=== PATIENT | female | born 1950 | race African-American/Black ===

== ENCOUNTER 2017-04-06 09:02 | Outpatient (CLI) | payer MEDICARE, BC ==
--- NOTE | 2017-04-06 09:31 | RAD ---
CHEST 2 VIEWS: Date: 04/06/17 HISTORY: Dyspnea. COMPARISON: 01/22/17. FINDINGS: Heart size is enlarged. Lungs are clear of any infiltrative process. There is interstitial change in the bases, similar to the prior exam, probably related to scar. IMPRESSION: Cardiomegaly with chronic-appearing lung change. POS: [facility]
== END 2017-04-06 09:03 | disposition home or self-care (01) ==
LOC: RAD 09:02
PROVIDERS: ATTEND Internal Medicine Critical Care Medicine
DX: R06.00 Dyspnea, unspecified (principal); I51.7 Cardiomegaly
CPT/HCPCS: 71020

== ENCOUNTER 2017-04-28 06:56 | Outpatient (CLI) | payer MEDICARE, BC ==
--- NOTE | 2017-04-28 11:42 | RAD ---
PA AND LATERA CHEST: HISTORY: Dyspnea. COMPARISON: 04/06/17 study. FINDINGS: Heart size is enlarged. Some interstitial changes in the bases which appear to be chronic in nature. They are stable as compared to the prior study. IMPRESSION: Cardiomegaly with chronic-appearing interstitial change in the lung bases. POS: [facility]
== END 2017-04-28 06:57 | disposition home or self-care (01) ==
LOC: RAD 06:56
PROVIDERS: ATTEND Internal Medicine Critical Care Medicine
DX: R06.00 Dyspnea, unspecified (principal); I51.7 Cardiomegaly; J84.89 Other specified interstitial pulmonary diseases
CPT/HCPCS: 71020

== ENCOUNTER 2017-07-19 12:52 | Inpatient (IN) | payer MEDICARE, BC ==
--- NOTE | 2017-07-19 14:46 | RAD ---
PORTABLE AP CHEST X-RAY: 07/19/2017 HISTORY: Pneumonia. COMPARISON: 04/28/2017 FINDINGS: There are interstitial and patchy densities seen at the left lung base, worrisome for developing pneu monia. Increased linear densities are seen in the right infrahilar region, which may represent super imposition of structures, including vasculature, with a similar appearance to the prior exam. The ca rdiac silhouette and pulmonary vasculature are within normal limits. There is no other interval del cid ge. IMPRESSION: 1. Mild interstitial and patchy density at the left lung base, which may be related to developing pn eumonia. Followup to resolution is recommended. 2. Increased density, right infrahilar region, probably related to superimposition of structures, in cluding vasculature. POS: OFF
[2017-07-19 14:53] LABS: Anion Gap 13 mmol/L (10-20); BUN (Urea Nitrogen) 17 mg/dL (9.8-20.1); Calc. Creatinine Clearance 0 mL/min (70-130); Calcium 9.8 mg/dL (7.8-10.44); Carbon Dioxide 23 mmol/L (23-31); Chloride 106 mmol/L (98-107); Estimated GFR-MDRD 68; Glucose 75 mg/dL (80-115); Potassium 4.7 mmol/L (3.5-5.1); Sodium 137 mmol/L (136-145)
[2017-07-19 14:54] LABS: Anisocytosis SLIGHT = 6-15 cells (100X) (0-5/hpf); Digoxin 0.58 ng/mL (0.8-2.0); Eosinophils 1 % (0-10); Hemoglobin 12.2 g/dL (12.0-16.0); Hypochromia SLIGHT = 6-15 cells (100X) (0-5/hpf); Lymphocytes 5 % (21-51); MDiff Complete? YES; Mean Corpuscular HGB CONC 31.1 g/dL (32.0-36.0); Mean Corpuscular Volume 93.2 fl (81.0-99.0); Mean Platelet Volume 9.7 fL (7.4-10.4); Monocytes 6 % (0-10); Neutrophil 88 % (42-75); PLT Morphology Comment Appears Adequate; Platelet Count 296 thou/uL (130-400); RBC Distribution Width 15.6 % (11.5-14.5); Red Blood Cell (RBC) Count 4.22 mill/uL (4.20-5.40); White Blood Cell (WBC) Count 8.9 thou/uL (4.8-10.8)
[2017-07-19] MEDS: Sodium Chloride 0.45% 1,000 ML IV SCH (18:31)
[2017-07-19 19:07] VITALS: BMI 38.1
[2017-07-19] MEDS: Digoxin 0.25 MG TAB PO SCH (20:50)
[2017-07-19] MEDS: Enoxaparin Sodium 40 MG/0.4 ML SYRINGE SC SCH (20:51)
[2017-07-19 23:07] LABS: Bilirubin Negative (Negative); Blood, Urine Negative (Negative); Clarity CLOUDY (Clear); Glucose, Urine (Dipstick) Negative (Negative); Leukocyte Negative (Negative); Nitrite Negative (Negative); Protein, Urine (Dipstick) Negative (Neg-Trace); Specific Gravity, Urine 1.018 (1.002-1.036); Urobilinogen 0.2 mg/dL (0.2-1.0)
[2017-07-19 23:09] LABS: Bacteria/HPF Rare-Few HPF (None Seen); Hyaline Casts/LPF 0-3 HYALINE CAST LPF (0-3 Hyaline); WBC/HPF 0-3 HPF (0-3)
[2017-07-20] MEDS ORDERED: Digoxin 0.25 MG TAB PO SCH (09:00)
[2017-07-20] MEDS ORDERED: Enoxaparin Sodium 40 MG/0.4 ML SYRINGE SC SCH (09:00)
[2017-07-20] MEDS ORDERED: FLU VACC TS2017-18 (>65YR) 0.5 ML SYRINGE IM ONE (09:00)
[2017-07-20] MEDS: Sodium Chloride 0.45% 1,000 ML IV SCH (12:32)
--- NOTE | 2017-07-20 19:45 | PRG ---
DATE OF SERVICE: 07/20/2017 SUBJECTIVE: Broderick Salter says she feels much better. OBJECTIVE: VITAL SIGNS: She is afebrile, heart rate is 95, respiratory rate is 24, oximetry is 91 on 5 liters. LUNGS: Still remarkable for crackles at her left base. HEART: Regular rhythm. ABDOMEN: Soft. LABORATORY DATA: White count yesterday was 8.9, hemoglobin 12.2, platelets 296. Electrolytes normal . IMPRESSION: 1. Asthmatic bronchitis. 2. Pneumonia. 3. Bronchiectasis. 4. ? scleroderma. The activity of her scleroderma is unclear. 5. Acute on chronic respiratory failure with chronic hypoxemia, on oxygen at home. 6. 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 PLAN: Continue current medications. I have ordered an echocardiogram. We will see what this shows. She reminded me that she is past due for her meningioma MRI, but since we do not have an open MRI, fantasma mao will not get in the MRI we have here. This will have to be done as an outpatient.
[2017-07-20] MEDS: Digoxin 0.25 MG TAB PO SCH (20:14)
[2017-07-20] MEDS: Enoxaparin Sodium 40 MG/0.4 ML SYRINGE SC SCH (20:15)
--- NOTE | 2017-07-21 04:55 | HP ---
07/19/2017 HISTORY OF PRESENT ILLNESS: Ms. Salter is a very pleasant, [facility] some time. 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 She was hospitalized in 2017 with reactive airways, bronchitis, rapid atrial fibrillation, pulmonary edema, alveolar hemorrhage, all of which was not felt to be classically related to underlying scleroderma. Certainly possible that the alveolar hemorrhage was, but she also had rapid atrial fibrillation and hypertension clinically at the time of the onset of alveolar hemorrhage. She developed critical illness, myopathy which took some while to recover from, but she did completely recover from that. She was hospitalized last fall with shortness of breath. It is felt to be ultimately related to asthmatic bronchitis. She also has bronchiectasis and reactive airways. She subsequently has been doing reasonably well on low-dose prednisone. She has seen new stain dipper across town. No medication changes have been made. She is on 10 mg a day of prednisone, tell me that she had shingles recently and then developed colds and respiratory symptoms several days prior to admission, dyspnea on exertion has increased. She was seen in my office and I recommended increasing her prednisone, we were considering placing her on more antimicrobial therapy. As she was leaving, she told me she felt like she was going to pass out. She subsequently has been admitted for possible pneumonia with reactive airways bronchiectasis. PAST MEDICAL HISTORY: 1. Remarkable for history of lupus, but she has had negative serology when I have drawn the serology. 2. History of scleroderma. 3. History of bronchiectasis. 4. History of reactive airways. 5. History of alveolar hemorrhage as mentioned above. 6. Diastolic dysfunction. 7. Positive SCL-70 IgG antibody, last admission with a positive SIENNA, but no other lupus serology. She had a positive smooth muscle antibody as well and IgM and a Cardiolite antibody, although she never had a hypercoagulable state. She has been worked up for thromboembolic disease now with her alveolar hemorrhage. 8. History of PFTs in the past that were normal. 9. History of bronchoscopy when she was intubated with respiratory failure and alveolar hemorrhage, showing 70% hemosiderin laden macrophages. 10. Anemia of chronic disease. 11. Multiple life stresses and chronically ill with multiple myeloma who has lost both of his legs, not supportive at all. Prior to admission, she was on digoxin 0.25 a day, aspirin 81 mg a day, Cardizem 240 a day, Lasix 40 a day, nebulizer treatments four times a day, lisinopril 5 mg a day, and prednisone 10 mg a day. SOCIAL HISTORY: She is a nonsmoker, nondrinker. She does not use drugs. ALLERGIES: TESSALON PERLES, CODEINE, IODINE and PENICILLIN. FAMILY HISTORY: As mentioned negative for lung disease at an early age. REVIEW OF SYSTEMS: Otherwise negative. Her only complaints are sinus congestion, cough, and dyspnea on exertion. PHYSICAL EXAMINATION: VITAL SIGNS: She is afebrile, heart rate 61, respiratory rate is 18, blood pressure 121/75. Oximetry is 100% on 6-liter cannula. HEENT: Pupils are equal. Sclerae are anicteric. Extraocular movements are full. NECK: Supple. No lymphadenopathy. LUNGS: She had crackles at her left base. HEART: Regular rhythm. S1 and S2 are normal. I do not hear a gallop. ABDOMEN: Soft and nontender. EXTREMITIES: Without clubbing, cyanosis, or edema. IMAGING: Chest radiograph shows no alveolar infiltrates. IMPRESSION: 1. Asthmatic bronchitis with possible pneumonia with underlying bronchiectasis. 2. Acute on chronic respiratory failure, chronic hypoxemia as an outpatient. 3. History of atrial fibrillation on Cardizem and digoxin. PLAN: Antibiotics, steroids, nebulizer treatments, DVT prophylaxis, serial exams, lab work. I will repeat an echo while she is here. Hopefully, we can maybe get estimated PA pressures. This is a 50 min consult, greater than 50% of this time was spent on the unit coordinating care. JASPER
[2017-07-21] MEDS: Sodium Chloride 0.45% 1,000 ML IV SCH (05:20)
--- NOTE | 2017-07-21 18:00 | PRG ---
DATE OF SERVICE: 07/21/2017 SUBJECTIVE: Broderick Salter says she is feeling better. She is still complaining of dyspnea on exert ion with desaturation. She says she gets a burning in her chest when gets nauseated, when she exerts . OBJECTIVE: VITAL SIGNS: Heart rate in the 90s, respiratory rate is in the 20s, oximetry is 88% to 100%. LUNGS: Remarkable for crackles at her lung bases that are faint. CARDIOVASCULAR: Regular rhythm. ABDOMEN: Soft. LABORATORY DATA: No new lab. Echocardiogram is pending. We will consult Cardiology since they have seen her in the past. It does not sound like angina, but it certainly could be. I will repeat noncontrast CT of the chest. Awaiting echocardiogram results.
[2017-07-21] MEDS: ALPRAZolam 0.25 MG TAB PO PRN (18:18)
--- NOTE | 2017-07-21 19:00 | CT ---
CT CHEST WITHOUT CONTRAST: 07/21/17 Multiple axial tomograms obtained through the chest without IV enhancement. HISTORY: Scleroderma. History of pulmonary hemorrhage. Comparison made to chest CT of 02/11/17. FINDINGS: There are chronic lung changes again seen. There are small cystic changes in the lung bases which wou ld be consistent with a history of scleroderma. There is some hazy ground glass opacity in the lung b ases which appears stable and there is mild bronchiectasis. These findings all appear stable from the prior study. There is a focal area of ground glass opacity in the left upper lung which is slightly more prominent today of uncertain significance. This could represent changes from scleroderma, althou gh a focal area of subtle infiltrate is not excluded. Mediastinum unremarkable. Images through upper abdomen unremarkable. No other interval change noted. IMPRESSION: 1. Chronic lung parenchymal changes which include numerous cystic changes in the lung bases with bronchiectasis and ground glass opacity with parenchymal stranding and interstitial thickening. Thes e are stable findings and consistent with scleroderma. 2. There is a subtle area of ground glass opacity in the left upper lung measuring in the 2 to 2 .5 cm range. This may represent changes related to scleroderma, although a more focal process cannot be completely excluded. It was not present on the prior study. POS: [facility]
[2017-07-21] MEDS: Digoxin 0.25 MG TAB PO SCH (21:21)
[2017-07-21] MEDS: Enoxaparin Sodium 40 MG/0.4 ML SYRINGE SC SCH (21:21)
[2017-07-22] MEDS: Sodium Chloride 0.45% 1,000 ML IV SCH ×2 (01:33→05:14)
--- NOTE | 2017-07-22 19:05 | PRG ---
DATE OF SERVICE: 07/22/2017 SUBJECTIVE: Broderick Salter has no complaints today at rest. She said she got out of bed and desatur ating in the 40s. She said she felt like she was passing out. Echocardiogram has been done. She had moderate to severe tricuspid insufficiency. She had evidence of pulmonary hypertension on echocardiogram, moderately elevated PA pressures. I di d not see in the report an estimated PA pressure. Cardiology has been consulted. OBJECTIVE: LUNGS: Clear. HEART: Regular rhythm. ABDOMEN: Soft. She says she is feeling better. I doubt she has thromboembolic disease, ventilation perfusion study will be ordered in the morning. She will probably need to be referred to a center that deals with pulmonary hypertension for further evaluation. I do not feel comfortable empirically prescribing many of the multiple medications that are available now for a pulmonary hypertension. We will continue the steroids, but plan on switching her to p.o. steroids today. I suspect some of h er shortness of breath is bronchiectasis and reactive airways. CT scan showed nothing to suggest napoleon t she has had recurrence of her alveolar hemorrhage. I met with her twice today and answered all of her questions.
[2017-07-22] MEDS ORDERED: Milk Of Magnesia 30 ML UDCUP PO PRN (19:56)
[2017-07-22] MEDS: Digoxin 0.25 MG TAB PO SCH (20:21)
[2017-07-22] MEDS: Enoxaparin Sodium 40 MG/0.4 ML SYRINGE SC SCH (20:21)
[2017-07-22] MEDS ORDERED: traMADol HCl 50 MG TAB PO PRN (21:58)
--- NOTE | 2017-07-23 02:20 | CON ---
DATE OF CONSULTATION: 07/22/2017 INDICATION FOR CONSULTATION: A 67-year-old female with tachycardia, history of scleroderma and lupus. HISTORY OF PRESENT ILLNESS: This very unfortunate 66-year-old female who has been seen by me in the past. She has a history of lupus, scleroderma. She has had a history of intermittent atrial fibrillation with rapid ventricular response and severe decrease in her O2 saturations at times which is minimal movement. She appears to have had another flare up of her COPD or her lung disease with her scleroderma and SLE. She has had a history of alveolar hemorrhage in the past. She required intubation and was very ill last admission. She came in again this time after seeing her mine inspector federal in the office and was admitted due to shortness of breath and we were asked to see her. She did have an echocardiogram yesterday which shows a normal ejection fraction. Ejection fraction still 60-65% with diastolic dysfunction. She does have a dilated right atrium and right ventricle and pulmonary hypertension, most likely compatible with her scleroderma, which has affected her lungs at this time. This morning, she had O2 saturations less than 50% which is minimal activity and now she is back in the 80s and 90s at times and she is not moving, but otherwise has been relatively stable. She denies any chest pain. She has no history of coronary artery disease, of any significance that I am aware of. At this time, she is more comfortable and says she feels better than when she was admitted. PAST MEDICAL HISTORY: Significant for systemic lupus erythematosus as well as scleroderma, alveolar hemorrhage. She has had a history of anemia of chronic disease. She has hypertension. She has a history of tachycardia and intermittent atrial fibrillation in the past. She had been on amiodarone which did not control her rate and she was eventually placed on digoxin. Past medical history is significant also for diabetes. She has had a meningioma. She has had a history of bronchiectasis with chronic disease. She has had an appendectomy and hysterectomy. FAMILY HISTORY: Positive for hypertension. She has 1 niece who has also had a lung transplant. Her father had a myocardial infarction in 1994. SOCIAL HISTORY: She is and lives with her . I believe he is also undergoing chemotherapy at this time. She has no history of alcohol or tobacco abuse. REVIEW OF SYSTEMS: A 12-point review of systems is unremarkable except for shortness of breath. She denied any chest pain or lower extremity edema. She does feel occasional palpitations. PRESENT MEDICATIONS: Include Xanax, aspirin 81 mg a day, digoxin 0.25 mg a day , diltiazem 240 mg q.p.m., Lovenox 40 mg subcu for DVT prophylaxis. She is on ipratropium/albuterol nebulizer treatment. She is on Levaquin 750 mg 2 every day, methylprednisolone 20 mg IV q.6 hours. ALLERGIES: She is allergic to BENZONATATE, CHOCOLATE FLAVORS, CODEINE, IODINE, PENICILLINS. PHYSICAL EXAMINATION: GENERAL: Reveals an elderly female in no acute distress at this time. She does become short of breath, when she exerts herself or becomes during the examination if she is talking too much, O2 saturations will drop down into the 80s. VITAL SIGNS: Her heart rate is in the 80s-90s and is somewhat irregular at times. Respiratory rate is anywhere between 16-24, O2 saturations anywhere between 78-90. Blood pressure is 126/69. HEENT: Shows the head to be normocephalic, atraumatic. Carotid pulses are present. No bruits were noted. LUNGS: Her chest has decreased breath sounds, but is clear throughout without any rales, rhonchi or wheezing. CARDIOVASCULAR: Reveals an irregular rhythm at times, sometimes regular. She may be having intermittent atrial fibrillation or this be just sinus tachycardia with occasional or frequent PACs. Otherwise, there were no significant heaves or thrills. She does have a systolic murmur at the lower sternal border. ABDOMEN: Shows abdomen to be obese with positive bowel sounds. No organomegaly , masses are noted. EXTREMITIES: Showed no clubbing, cyanosis or edema. Pedal pulses are present. NEUROLOGIC: The patient is intact. SKIN: Warm and dry. LABORATORY DATA: WBC of 8.9, hemoglobin is 12.2, glucose is 75, potassium is 4.7. Her creatinine is 0.98. Digoxin level was low at 0.58. IMPRESSION: 1. Elderly female with again respiratory exacerbation due to her most likely lupus as well as the scleroderma. She has what appears to be more right-sided failure with dilatation of the right ventricle and IVC dilatation as well as increased pulmonary pressures compatible with pulmonary hypertension. The left ventricle appears to be normal. 2. Diastolic dysfunction. 3. History of hypertension. This is under good control at this time. 4. History of lupus. She is on steroids chronically and she is followed by Dr. Rg. 5. History of scleroderma and this is most likely was affecting her lungs more than anything else, but cardiac status otherwise appears to be stable. 6. Tachycardia at times with intermittent atrial fibrillation. At this time, I will obtain an EKG to determine whether or not she is having intermittent atrial fibrillation or whether or not this is sinus with PACs. From a cardiac standpoint, I would just continue to monitor the heart rate and hopefully we may need to actually increase the dose of the digoxin slightly, but at this time , she appears to be relatively stable. The heart rate has been under reasonable control and has been in the 80s-90s. MTDD
[2017-07-23] MEDS: predniSONE 20 MG TAB PO SCH (07:31)
[2017-07-23] MEDS: Polyethylene Glycol 3350 17 GM Packet PO SCH (07:42)
[2017-07-23] MEDS: ALPRAZolam 0.25 MG TAB PO PRN (12:08)
--- NOTE | 2017-07-23 12:39 | PDOC.CTH ---
<Jada Elizalde - Last Filed: 07/23/17 12:37> Cardiology Progress Note - Subjective The pt seen and examined. No overnight events. No cardiac complaints. When she moves or walk with very short distance, she becomes very short-winded and O2 sat was down to 40s today. - Objective Vital Signs Temp Pulse Resp BP BP Pulse Ox 07/23/17 11:43 70 16 90 L 07/23/17 08:06 97.1 F L 90 16 144/86 H 07/23/17 08:00 97.1 F L 90 16 07/23/17 06:14 99 07/23/17 06:12 76 18 99 07/23/17 04:00 97.8 F 82 22 H 113/69 95 Weight 215 lb 3.2 oz - Physical Examination General/Neuro: alert & oriented x3 Neck: no JVD present Lungs: other: (diminished at bases) Heart: RRR Abdomen: soft Extremities: other: (No edema) - Labs Result Diagrams: 07/19/17 14:06 07/19/17 14:06 - Assessment/Plan 1. Resp. exacerbation secondary to lupus and scleroderma - managed by PCP 2. Diastolic dysfunction - stable; cont. monitor 3. Tachycardia and paroxysmal Afib - stable; cont. monitor 4. HTN - Stable with current medication 5. DM type 2 - stable with current medication MAR reviewed * Echo on 07/19/17 showed EF 60-65%, diastolic dysfunction, mod-severe TR, and mod Pulmonary artery pressure Review of Systems - Review of Systems Constitutional: reports: no symptoms reported EENTM: reports: no symptoms reported Respiratory: reports: see HPI Cardiac (ROS): reports: see HPI ABD/GI: reports: no symptoms reported : reports: no symptoms reported Musculoskeletal: reports: no symptoms reported <Kyle Maldonado - Last Filed: 07/23/17 14:57> Cardiology Progress Note - Objective Vital Signs Temp Pulse Resp BP BP Pulse Ox 07/23/17 14:28 92 16 96 07/23/17 11:43 70 16 90 L 07/23/17 08:06 97.1 F L 90 16 144/86 H 07/23/17 08:00 97.1 F L 90 16 07/23/17 06:14 99 07/23/17 06:12 76 18 99 07/23/17 04:00 97.8 F 82 22 H 113/69 95 Weight 215 lb 3.2 oz - Labs Result Diagrams: 07/19/17 14:06 07/19/17 14:06 - Assessment/Plan Pt. seen and eval. by me . I agree with the A/P by the CONTROLLER OPERATIONS AND HR MANAGER. The cardiac status remains relatively stable. RRR with ectopy.
--- NOTE | 2017-07-23 13:56 | PRG ---
DATE OF SERVICE: 07/23/2017 SUBJECTIVE: Broderick Salter is stable overnight. She is still complaining of anxiety, so I will give her alprazolam around the clock. Going to send her for ventilation perfusion study, the nurses are trying to get a new IV in her for h er injection. It turns out Ms. Salter has a longstanding history of obstructive sleep apnea. She says she just ke eps her CPAP in her closet and does not like wearing it. I will empirically place her on CPAP/BiPAP while she is in the hospital and see if we can get her to tolerate this. It is certainly possible that her scleroderma is contributing to pulmonary hypertension, but diastoli c dysfunction and untreated sleep apnea could also be factors. I doubt she has thromboembolic disease, but we will rule this out. We will continue with our current care. I will decrease her steroid dosing. She also has reactive airways and bronchiectasis and has had constantine e sputum production that appears to be improving with steroids and antibiotics. She did have some tr jayde hemoptysis yesterday, but this has not recurred.
--- NOTE | 2017-07-23 14:19 | RAD ---
TWO VIEW CHEST: HISTORY: Shortness of breath. Exam is also performed to correlate with VQ scan. COMPARISON: 03/04/15. FINDINGS: Heart is mildly enlarged but stable. The lungs show no evidence of focal infiltrate or significant e ffusion. Vascular and interstitial markings are prominent but are also stable in appearance. IMPRESSION: No acute finding or interval change noted. POS: [facility]
--- NOTE | 2017-07-23 14:23 | NM ---
VENTILATION PERFUSION LUNG SCAN: HISTORY: Pulmonary hypertension. COMPARISON: Correlation is made to PA and lateral chest film. Chest shows mild vascular and interstitial promine nce. The pulmonary outflow tracts do not appear significantly prominent on the chest x-ray. FINDINGS: Ventilation scan performed with inhalation of 10 mCi Xenon gas. Heterogeneous inhalation consistent with COPD. Mild heterogeneous air trapping. Perfusion scan performed with administration of 6.6 mCi of Technetium labeled MAA IV. The lungs were imaged in 8 projections. There is normal perfusion bilaterally. No perfusion defect identified. IMPRESSION: Heterogeneous inhalation images suggesting chronic obstructive pulmonary disease. Normal perfusion s can. No evidence of pulmonary embolus. POS: [facility]
[2017-07-23] MEDS: Digoxin 0.25 MG TAB PO SCH (21:05)
[2017-07-23] MEDS: Enoxaparin Sodium 40 MG/0.4 ML SYRINGE SC SCH (21:06)
[2017-07-24] MEDS: predniSONE 20 MG TAB PO SCH (08:17)
[2017-07-24] MEDS: Polyethylene Glycol 3350 17 GM Packet PO SCH (08:20)
--- NOTE | 2017-07-24 11:11 | PDOC.CTH ---
Cardiology Progress Note - Subjective She is having several episodes of palpitations. She states sometimes it has maintained there for a few minutes. She feels SOB when it happens. - Objective Vital Signs Temp Pulse Resp BP Pulse Ox 07/24/17 10:28 77 16 95 07/24/17 08:19 84 16 95 07/24/17 08:00 97.5 F L 84 16 07/24/17 07:09 97.5 F L 101 H 16 125/69 98 Weight 215 lb 3.2 oz - Physical Examination General/Neuro: alert & oriented x3, NAD Neck: no JVD present Lungs: other: (Crackles bilat. ) Heart: other: (RRR with several early beats) Abdomen: NT/ND Extremities: other: (no edema) - Labs Result Diagrams: 07/19/17 14:06 07/19/17 14:06 - Assessment/Plan 1. Resp. exacerbation secondary to lupus and scleroderma 2. Diastolic dysfunction, improved. 3. Tachycardia and paroxysmal Afib - Ectopy on ECG,will repeat. 4. HTN 5. DM type 2 DARVIN: - Continue current meds.
--- NOTE | 2017-07-24 14:33 | PRG ---
DATE OF SERVICE: 07/24/2017 SUBJECTIVE: This morning, she is better. She is less short of breath. She still says she desats wh en she is walking. She has got pulmonary hypertension, multifactorial in origin. Her chest x-ray shows slightly increas ed markings as of yesterday. OBJECTIVE: VITAL SIGNS: Sats 96, respirations 16, temperature 97, blood pressure is 120/59. CHEST: Reveals no crackles or wheezing. CARDIAC: Normal S1, S2. ABDOMEN: Soft, no masses. IMPRESSION: Respiratory failure, sleep apnea, bronchitis, obesity, bronchiectasis, scleroderma. PLAN: Continue present treatment, PT, and supportive care. We will follow.
[2017-07-24] MEDS: Enoxaparin Sodium 40 MG/0.4 ML SYRINGE SC SCH (20:16)
[2017-07-24] MEDS: Digoxin 0.25 MG TAB PO SCH (20:16)
[2017-07-25] MEDS: Polyethylene Glycol 3350 17 GM Packet PO SCH (08:07)
[2017-07-25] MEDS: predniSONE 20 MG TAB PO SCH (08:07)
--- NOTE | 2017-07-25 09:25 | EKG ---
Test Reason : Blood Pressure : / mmHG Vent. Rate : 091 BPM Atrial Rate : 091 BPM P-R Int : 136 ms QRS Dur : 082 ms QT Int : 326 ms P-R-T Axes : 050 003 087 degrees QTc Int : 400 ms Sinus rhythm with Premature atrial complexes Possible Left atrial enlargement Nonspecific ST and T wave abnormality Abnormal ECG When compared with ECG of 11-FEB-2017 09:38, Premature atrial complexes are now Present Nonspecific T wave abnormality has replaced inverted T waves in Lateral leads Confirmed by DUSTY CHATTERJEE ([id number]) on 07/25/2017 9:24:52 AM Referred By: MARYBETH Confirmed By:DUSTY CHATTERJEE
--- NOTE | 2017-07-25 13:44 | PRG ---
DATE OF SERVICE: 07/25/2017 SUBJECTIVE: Broderick Salter is better, less cough, less pain, less short of breath. OBJECTIVE: VITAL SIGNS: Sats are 96% on 6 liters, pulse rate 90, blood pressure 157/85. CHEST: No crackles or wheezing. CARDIAC: Normal S1, S2. No gallops. IMPRESSION: Pulmonary hypertension secondary to obstructive sleep apnea. Baseline underlying sclero derma, supraventricular tachycardia. PLAN: Continue PT and supportive care. DISPOSITION: As per Dr. Rg.
[2017-07-25] MEDS: Digoxin 0.25 MG TAB PO SCH (20:33)
[2017-07-25] MEDS: Enoxaparin Sodium 40 MG/0.4 ML SYRINGE SC SCH (20:34)
[2017-07-26] MEDS: predniSONE 20 MG TAB PO SCH (08:18)
[2017-07-26] MEDS: Polyethylene Glycol 3350 17 GM Packet PO SCH (08:21)
--- NOTE | 2017-07-26 08:22 | PDOC.CTH ---
Cardiology Progress Note - Subjective The pt seen and examined. No overnight events. No cardiac complaints. She still has severe APODACA with movement. - Objective Vital Signs Temp Pulse Resp BP BP Pulse Ox 07/26/17 08:15 97.2 F L 62 16 150/66 H 95 07/26/17 07:13 86 20 91 L 07/25/17 20:34 82 136/80 07/25/17 20:33 87 Weight 215 lb 3.2 oz 07/25/17 07/26/17 07/27/17 06:59 06:59 06:59 Intake Total 1070 Balance 1070 - Physical Examination General/Neuro: alert & oriented x3 Neck: no JVD present Lungs: other: (diminished at bases) Heart: RRR Abdomen: soft Extremities: other: (No edema) - Labs Result Diagrams: 07/19/17 14:06 07/19/17 14:06 - Assessment/Plan 1. Resp. exacerbation secondary to lupus and scleroderma - still desat with movement; managed by PCP 2. Diastolic dysfunction - stable; start Lisinopril 5mg daily from today; cont. monitor 3. Tachycardia and paroxysmal Afib - stable with current medication; cont. monitor 4. HTN - Stable with current medication 5. DM type 2 - stable with current medication MAR reviewed * Echo on 07/19/17 showed EF 60-65%, diastolic dysfunction, mod-severe TR, and mod Pulmonary artery pressure Review of Systems - Review of Systems Constitutional: reports: weakness EENTM: reports: no symptoms reported Respiratory: reports: see HPI Cardiac (ROS): reports: no symptoms reported ABD/GI: reports: no symptoms reported : reports: no symptoms reported Musculoskeletal: reports: no symptoms reported
[2017-07-26] MEDS ORDERED: Lisinopril 5 MG TAB PO SCH (09:00)
[2017-07-26] MEDS: Lisinopril 5 MG TAB PO SCH (20:59)
[2017-07-26] MEDS: Digoxin 0.25 MG TAB PO SCH (21:00)
[2017-07-26] MEDS: Enoxaparin Sodium 40 MG/0.4 ML SYRINGE SC SCH (21:00)
--- NOTE | 2017-07-27 04:27 | PRG ---
DATE OF SERVICE: 07/26/2017 SUBJECTIVE: Joie states she feels better. She is not desaturating as bad as she was earlier last week when she ambulates. OBJECTIVE: VITAL SIGNS: She is afebrile, heart rate is in the 70s, respiratory rate is 20, oximetry 18. She says she is coughing up chocolate-colored sputum. I have seen Aspergillus look like this. We will culture sputum in the morning. Her estimated PA pressures per my discussion with Dr. Maldonado to day are close to 80 mmHg. I will discuss options with her in the morning which included evaluation by the transplant physicians out of town for right heart catheterization and workup for pulmonary hypertension which likely is re lated to scleroderma. She has had 20 years of untreated sleep apnea and says her sleep apnea was salvador rly severe. She only wore BiPAP this weekend one night, so treatment of this is probably not going t o happen even with nasal pillows. She was told the respiratory therapist is going to try get the мария al pillows for her; I am not sure if this is happened yet.
[2017-07-27] MEDS: predniSONE 20 MG TAB PO SCH (07:59)
[2017-07-27] MEDS: Polyethylene Glycol 3350 17 GM Packet PO SCH (08:00)
--- NOTE | 2017-07-27 08:41 | PDOC.CTH ---
<Jada Elizalde - Last Filed: 07/27/17 08:39> Cardiology Progress Note - Subjective the pt seen and examined. No overnight events. No cardiac complaints. She reported that she did not wear Bipap last night. She complains of lack of sleep last night. She was instructed to notify her RT for Bipap @ [facility] from [facility]. - Objective Vital Signs Temp Pulse Resp BP BP Pulse Ox 07/27/17 07:54 98.6 F 66 20 146/84 H 90 L 07/26/17 21:00 77 135/68 07/26/17 20:59 77 135/68 Weight 215 lb 3.2 oz 07/26/17 07/27/17 07/28/17 06:59 06:59 06:59 Intake Total 1070 Balance 1070 - Physical Examination General/Neuro: alert & oriented x3 Neck: no JVD present Lungs: other: (very diminished at bases) Heart: RRR Abdomen: soft Extremities: other: (No edema) - Labs Result Diagrams: 07/19/17 14:06 07/19/17 14:06 - Assessment/Plan 1. Resp. exacerbation secondary to lupus and scleroderma - still desat with movement; PA by Echo was 80mmHg; managed by Outside Barrel Lathe Operator and PCP 2. Diastolic dysfunction - stable; start Lisinopril 5mg daily from today; cont. monitor 3. Tachycardia and paroxysmal Afib - stable with current medication; cont. monitor 4. HTN - Stable with current medication 5. DM type 2 - stable with current medication MAR reviewed * Echo on 07/19/17 showed EF 60-65%, diastolic dysfunction, mod-severe TR, and mod Pulmonary artery pressure Review of Systems - Review of Systems Constitutional: reports: weakness EENTM: reports: no symptoms reported Respiratory: reports: see HPI Cardiac (ROS): reports: no symptoms reported ABD/GI: reports: no symptoms reported : reports: no symptoms reported Musculoskeletal: reports: no symptoms reported <Kyle Maldonado - Last Filed: 07/27/17 23:10> Cardiology Progress Note - Objective Vital Signs Temp Pulse Resp BP BP Pulse Ox 07/27/17 20:21 87 18 92 L 07/27/17 20:00 97.9 F 87 18 95 07/27/17 19:56 86 156/81 H 07/27/17 19:55 97.9 F 86 22 H 156/81 H 98 07/27/17 19:26 86 07/27/17 14:53 86 20 98 Weight 215 lb 3.2 oz 07/26/17 07/27/17 07/28/17 06:59 06:59 06:59 Intake Total 1070 Balance 1070 - Labs Result Diagrams: 07/19/17 14:06 07/19/17 14:06 - Assessment/Plan Pt. seen and eval. by me. I agree with the A/P by the RESIDUE FURNACE OPERATOR. Chest is clear. RRR with occ. ectopy.
--- NOTE | 2017-07-27 19:00 | PRG ---
DATE OF SERVICE: 07/27/2017 SUBJECTIVE: Broderick Salter is doing well. She is much better than when she came in, but she is not back to her baseline. She gets anxious when she has to move around. OBJECTIVE: VITAL SIGNS: She is afebrile, heart rate is in the 80s, respiratory rate is 20, oximetry is 98% on 6 liters. She would probably go home on 4-5 liters a minute. Blood pressure 120/63. LUNGS: Clear. HEART: Regular rhythm. ABDOMEN: Soft. Respiratory culture preliminary from this morning shows rare gram positive cocci. IMPRESSION: Pulmonary hypertension. She has diastolic dysfunction, history of atrial fibrillation a nd untreated sleep apnea which may contribute to this. She also has scleroderma. PLAN: Plan to continue to attempt to contact one of the physicians at [facility] transplant keo glass to see what her options are. She is actually semi opposed to going out of town for inputs her ca re. I am hesitant to empirically start pulmonary hypertension drugs without right heart catheterizat ion. We will discuss the above hopefully within the next 24 hours and then anticipate that may be able to discharge her home in the morning.
[2017-07-27] MEDS: Digoxin 0.25 MG TAB PO SCH (19:55)
[2017-07-27] MEDS: Enoxaparin Sodium 40 MG/0.4 ML SYRINGE SC SCH (19:56)
[2017-07-27] MEDS: Lisinopril 5 MG TAB PO SCH (19:56)
[2017-07-28 08:21] VITALS: TEMP 97.1
[2017-07-28] MEDS: predniSONE 20 MG TAB PO SCH (08:29)
[2017-07-28] MEDS: Polyethylene Glycol 3350 17 GM Packet PO SCH (08:30)
[2017-07-28 15:59] VITALS: BP 122/74
--- NOTE | 2017-07-29 15:45 | DIS ---
DATE OF ADMISSION: 07/19/2017 DATE OF DISCHARGE: 07/28/2017 DISCHARGE DIAGNOSES: 1. Pulmonary hypertension. It is unclear whether or not this is related to scleroderma. She has un treated sleep apnea as well as diastolic dysfunction. She has agreed to a sleep study. She has had untreated sleep apnea for 25 years. 2. Reactive airways. 3. Bronchiectasis. 4. Scleroderma. 5. History of a positive SIENNA. 6. Raynaud's with her collagen vascular disease. 7. History of atrial fibrillation with rapid ventricular response. 8. 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 It is unclear whethe r the alveolar hemorrhage was related to atrial fibrillation. My best guess, atrial fibrillation and diastolic dysfunction was the cause of the alveolar hemorrhage. Alveolar hemorrhage and scleroderma is extremely rare. 9. Deconditioning. 10. History of bronchiectasis. 11. Positive SCL-70 IgG antibody last admission, positive smooth muscle antibody as well as an IgM a nd an anticardiolipin antibody. She has never had a hypercoagulable state. She was worked up for th romboembolic disease with her alveolar hemorrhage and this workup was negative. 12. History of normal PFTs in the past. 13. History of bronchoscopy, when she was intubated showing 70% hemosiderin laden macrophages confir olivia the diagnosis of alveolar hemorrhage. 14. Multiple life stresses including the has multiple myeloma and is a double amputee. Plea se see history and physical for details. 15. Acute on chronic respiratory failure with chronic hypoxemia on oxygen at home. HOSPITAL SUMMARY: Briefly, Ms. Villafana presented to the office hypoxic and feeling poorly. She subse quently was admitted with steroids, antibiotics, nebulizer treatment. She has gradually improved. E chocardiogram showed elevated PA pressures close to 80, estimated mmHg. For now, we will proceed forward with a sleep study and then make further recommendations after that. I discussed being seen by a pulmonary hypertension specialist at a transplant center, but she is no t interested at this time. We will continue the current management. She has also seen a rheumatolog ist here in [facility] and has an appointment with him in the near future. She is back near her baseline at the time of discharge. DISCHARGE MEDICATIONS: Include ipratropium and albuterol 4 times a day at home, Xanax 0.25 b.i.d. to q.i.d. p.r.n. anxiety, baby aspirin once a day, 40 mg of prednisone a day, Cardizem 240 mg a day, Ze stril 5 mg a day, Ultram 50 mg q.i.d. p.r.n. pain., digoxin 0.25 mg a day, Lasix 40 mg a day. FOLLOWUP: She will follow up with me in 2-3 weeks after sleep study.
== END 2017-07-28 16:22 | disposition home or self-care (01) | DRG 314 ==
LOC: T4-A 12:52
PROVIDERS: ADMIT Internal Medicine Critical Care Medicine; ATTEND Internal Medicine Critical Care Medicine
DX: I27.29 Other secondary pulmonary hypertension (principal); J96.21 Acute and chronic respiratory failure with hypoxia; I48.0 Paroxysmal atrial fibrillation; M34.9 Systemic sclerosis, unspecified; Z99.81 Dependence on supplemental oxygen; G47.33 Obstructive sleep apnea (adult) (pediatric); J47.9 Bronchiectasis, uncomplicated; J45.909 Unspecified asthma, uncomplicated; I73.00 Raynaud's syndrome without gangrene; Z88.5 Allergy status to narcotic agent; Z88.0 Allergy status to penicillin; Z88.8 Allergy status to other drugs, medicaments and biological substances; Z91.018 Allergy to other foods; Z79.52 Long term (current) use of systemic steroids; Z79.899 Other long term (current) drug therapy
CPT/HCPCS: 36415; 71045; 71046; 71250; 78582; 80048; 80162; 81001; 84443; 85025; 87040; 87070; 87086; 87205; 90471; 90682; 93005; 93010; 93306; 94640; 94660; A9540; A9558; G0008; J1650; J2920; J7506; J7620; Q2036

== ENCOUNTER 2017-08-18 10:00 | Outpatient (CLI) | payer MEDICARE, BC ==
--- NOTE | 2017-08-18 11:59 | RAD ---
TWO VIEW CHEST: History: Dyspnea. Comparison: 07-23-17 FINDINGS: There are chronic appearing lung changes in both lung bases with increased interstitial markings and some stranding. Right heart border is obscured possibly due to some of this chronic change. I cannot exclude infiltrate, however, no significant change from 08-02-17. Heart size is upper normal and stable. Vascular markings are also upper normal and stable. IMPRESSION: Stable chest from 07-23-17. Chronic appearing changes in both lower lungs. POS: [facility]
== END 2017-08-18 10:01 | disposition home or self-care (01) ==
LOC: RAD 10:00
PROVIDERS: ATTEND Internal Medicine Critical Care Medicine
DX: R06.00 Dyspnea, unspecified (principal)
CPT/HCPCS: 71046

== ENCOUNTER 2017-09-19 20:30 | Outpatient (CLI) | payer MEDICARE, BC | END 2017-09-19 20:31 | disposition home or self-care (01) | LOC: SLEEPLAB 20:30 | PROVIDERS: ATTEND Internal Medicine Critical Care Medicine | DX: G47.33 Obstructive sleep apnea (adult) (pediatric) (principal); E66.9 Obesity, unspecified; R09.02 Hypoxemia | CPT/HCPCS: 95810 ==